=== PATIENT | male | born 1965 | race Caucasian/White ===

== ENCOUNTER 2020-06-04 14:35 | Inpatient (IN) | payer SELFPAY ==
[~2020-06-04] VITALS: Ht 180.3 cm; Wt 117.2 kg
[2020-06-04 15:11] LABS: BASOPHILS ABSOLUTE AUTO 0.09 K/mm3 (0.00-0.23); BASOPHILS PERCENT AUTO 1 % (0-2); EOSINOPHILS ABSOLUTE AUTO 0.12 K/mm3 (0.00-0.68); EOSINOPHILS PERCENT AUTO 1 % (0-6); Hematocrit 36.8 % (37.0-53.0); Hemoglobin 12.3 g/dL (13.5-17.5); IMMATURE GRAN ABSOLUTE AUTO 0.16 K/mm3 (0.00-0.10); IMMATURE GRAN PERCENT AUTO 1 % (0-1); LYMPHOCYTES ABSOLUTE AUTO 1.82 K/mm3 (0.84-5.20); LYMPHOCYTES PERCENT AUTO 10 % (21-46); MONOCYTES ABSOLUTE AUTO 1.67 K/mm3 (0.16-1.47); MONOCYTES PERCENT AUTO 9 % (4-13); Mean Corpuscular HGB 28.2 pg (26.0-34.0); Mean Corpuscular HGB Conc 33.4 g/dL (31.5-36.5); Mean Corpuscular Volume 84 fL (80-100); Mean Platelet Volume 9.3 fL (9.1-12.4); NEUTROPHILS ABSOLUTE AUTO 13.88 K/mm3 (1.96-9.15); NEUTROPHILS PERCENT AUTO 78 % (41-73); Platelet Count 519 K/mm3 (150-400); RDW Coefficient Variation 11.7 % (11.7-14.2); RDW Standard Deviation 35.8 fL (35.1-46.3); Red Blood Cell Count 4.36 M/mm3 (4.30-5.90); White Blood Cell Count 17.74 K/mm3 (4.00-11.30)
[2020-06-04 15:32] LABS: Alanine Aminotransfer (ALT/SGP 45 U/L (12-78); Albumin, Blood 3.1 g/dL (3.4-5.0); Albumin/Globulin Ratio 0.6 (0.8-1.8); Alk Phos 97 U/L (50-136); Anion Gap 7 mmol/L (6-16); Aspartate Aminotrans (AST/SGOT 22 U/L (12-37); Bilirubin, Total 0.5 mg/dL (0.1-1.0); Blood Urea Nitrogen 11 mg/dL (8-24); Bun/Creatinine Ratio 18.2 (12.0-20.0); CO2, Blood 25 mmol/L (21-32); Chloride, Blood 100 mmol/L (98-108); Creatinine, Blood 0.61 mg/dL (0.60-1.20); Globulin, Blood 4.9 g/dL (2.2-4.0); Glomerular Filtration Rate >60 (60-); Glucose, Blood 279 mg/dL (70-99); Potassium, Blood 3.8 mmol/L (3.5-5.5); Sodium, Blood 132 mmol/L (136-145)
[2020-06-04] MEDS ORDERED: Afrin15 ML (20:13)
[2020-06-04] MEDS ORDERED: ACET500 (20:14)
[2020-06-04] MEDS ORDERED: ZYRTEC10 M2 PO (20:14)
[2020-06-04] MEDS ORDERED: Hair, Skin & N1 EACH PO (20:15)
[2020-06-04] MEDS ORDERED: ACET500 PO (20:15)
[2020-06-04] MEDS ORDERED: Triple Antibi28.4 G1 PO (20:17)
[2020-06-05 04:35] LABS: BASOPHILS ABSOLUTE AUTO 0.07 K/mm3 (0.00-0.23); BASOPHILS PERCENT AUTO 1 % (0-2); EOSINOPHILS ABSOLUTE AUTO 0.19 K/mm3 (0.00-0.68); EOSINOPHILS PERCENT AUTO 1 % (0-6); Hematocrit 34.2 % (37.0-53.0); Hemoglobin 11.2 g/dL (13.5-17.5); IMMATURE GRAN ABSOLUTE AUTO 0.13 K/mm3 (0.00-0.10); IMMATURE GRAN PERCENT AUTO 1 % (0-1); LYMPHOCYTES ABSOLUTE AUTO 1.98 K/mm3 (0.84-5.20); LYMPHOCYTES PERCENT AUTO 15 % (21-46); MONOCYTES ABSOLUTE AUTO 1.46 K/mm3 (0.16-1.47); MONOCYTES PERCENT AUTO 11 % (4-13); Mean Corpuscular HGB 28.1 pg (26.0-34.0); Mean Corpuscular HGB Conc 32.7 g/dL (31.5-36.5); Mean Corpuscular Volume 86 fL (80-100); Mean Platelet Volume 9.3 fL (9.1-12.4); NEUTROPHILS ABSOLUTE AUTO 9.65 K/mm3 (1.96-9.15); NEUTROPHILS PERCENT AUTO 72 % (41-73); Platelet Count 460 K/mm3 (150-400); RDW Coefficient Variation 11.8 % (11.7-14.2); RDW Standard Deviation 37.3 fL (35.1-46.3); Red Blood Cell Count 3.98 M/mm3 (4.30-5.90); White Blood Cell Count 13.48 K/mm3 (4.00-11.30)
--- NOTE | 2020-06-05 04:46 | NUR ---
SHIFT SUMMARY: VSS. TEMP 99.4 UPON ARRIVAL TO MEDICAL FLOOR. 98.5 THIS AM. AAOX4. COMMUNICATES NEEDS. IV FLUIDS AND ABT INFUSING PER ORDERS IN EMAR. B GRT TOES CLEANSED, PATTED DRY, ABSORBENT NON-ADHERENT PADS PLACED, SECURED IN PLACE W/ KERLIX. MOD AMTS OF SERO SANGUINOUS, FOUL SMELLING EXUDATE FROM B GRT TOES. R GRT TOE LARGELY SWOLLEN AND ERYTHEMOUS. L GRT TOE MODERATELY SWOLLEN WITHOUT ERYTHEMA. 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 REPORTS PAIN 3/10 IN R MEDIAL ROBERTS- TYL ADMINISTERED. PT SLEPT POORLY, WAKING UP FREQUENTLY TO VOID. ATE A LARGE DINNER PRIOR TO MIDNIGHT AND NOW REMAINS NPO IN PREPARATION FOR POSSIBLE AMPUTATION OF R GRT TOE TODAY. WILL CONT TO MONITOR PT.
[2020-06-05 04:52] LABS: Anion Gap 6 mmol/L (6-16); Blood Urea Nitrogen 15 mg/dL (8-24); Bun/Creatinine Ratio 16.9 (12.0-20.0); CO2, Blood 27 mmol/L (21-32); Calcium, Blood 8.5 mg/dL (8.5-10.1); Chloride, Blood 101 mmol/L (98-108); Creatinine, Blood 0.89 mg/dL (0.60-1.20); Glomerular Filtration Rate >60 (60-); Glucose, Blood 321 mg/dL (70-99); Potassium, Blood 4.1 mmol/L (3.5-5.5); Sodium, Blood 134 mmol/L (136-145)
--- NOTE | 2020-06-05 18:58 | NUR ---
SHIFT SUMMARY GOPI DENIED PAIN THIS SHIFT. FEET WOUNDS CLEANED AND RE-DRESSED. WAS NPO ALL DAY FOR OR PROCEDURE, BUT WAS CANCELED AT THE LAST MINUTE DUE TO OR BEING OVERLOADED. RESCHEDULED TO TOMORROW AT 0730. PT AWARE, DR MONTES AWARE, HE WAS ABLE TO EAT DINNER. VISITED. TM
--- NOTE | 2020-06-05 21:37 | NUR ---
ASSUMED CARE. AOX3, INDEPENDENT IN THE ROOM. PUTS WEIGHT ON HIS HEELS ONLY. DRESSING CHANGED TO BILATERAL FEET. WOUND TO RIGHT GREAT TOE CLEANSED, NECROSIS NOTED TO TOE, THERE IS SOME BLUE TO THE TIP OF THE TOE. ESCAR IN THE WOUND. CLEANSED AND RE-WRAPPED. IV BAG HUNG WITH ANTIBOTIC. TYLENOL GIVE FOR PAIN. DENIED ANY OTHER ISSUES. PLAN TO TO GO TO SURGERY TOMORROW. CALL LIGHT IN REACH. WILL CONTINUE TO MONITOR.
[2020-06-06 04:50] LABS: BASOPHILS ABSOLUTE AUTO 0.07 K/mm3 (0.00-0.23); BASOPHILS PERCENT AUTO 1 % (0-2); EOSINOPHILS ABSOLUTE AUTO 0.24 K/mm3 (0.00-0.68); EOSINOPHILS PERCENT AUTO 2 % (0-6); Hematocrit 34.4 % (37.0-53.0); Hemoglobin 11.2 g/dL (13.5-17.5); IMMATURE GRAN ABSOLUTE AUTO 0.17 K/mm3 (0.00-0.10); IMMATURE GRAN PERCENT AUTO 1 % (0-1); LYMPHOCYTES ABSOLUTE AUTO 1.97 K/mm3 (0.84-5.20); LYMPHOCYTES PERCENT AUTO 15 % (21-46); MONOCYTES ABSOLUTE AUTO 1.38 K/mm3 (0.16-1.47); MONOCYTES PERCENT AUTO 10 % (4-13); Mean Corpuscular HGB Conc 32.6 g/dL (31.5-36.5); Mean Corpuscular Volume 86 fL (80-100); Mean Platelet Volume 9.7 fL (9.1-12.4); NEUTROPHILS ABSOLUTE AUTO 9.57 K/mm3 (1.96-9.15); NEUTROPHILS PERCENT AUTO 71 % (41-73); Platelet Count 480 K/mm3 (150-400); RDW Coefficient Variation 11.7 % (11.7-14.2); RDW Standard Deviation 36.8 fL (35.1-46.3)
[2020-06-06 05:07] LABS: Anion Gap 5 mmol/L (6-16); Blood Urea Nitrogen 12 mg/dL (8-24); Bun/Creatinine Ratio 13.9 (12.0-20.0); CO2, Blood 28 mmol/L (21-32); Calcium, Blood 8.7 mg/dL (8.5-10.1); Chloride, Blood 103 mmol/L (98-108); Creatinine, Blood 0.86 mg/dL (0.60-1.20); Glomerular Filtration Rate >60 (60-); Glucose, Blood 237 mg/dL (70-99); Potassium, Blood 4.2 mmol/L (3.5-5.5); Sodium, Blood 136 mmol/L (136-145)
--- NOTE | 2020-06-06 05:46 | NUR ---
SHIFT SUMMARY: AOX3, INDEPENDENT IN THE ROOM, PARTIAL WEIGHT BEARING, USES HEEL TOUCH ONLY TO MOVE AROUND. DRESSING CHANGED TO BILATERAL FEET. SURGERY SCHEDULED FOR 0745. NPO SINCE MIDNIGHT. IV FLUIDS INFUSING WELL INTO 20G. SURGICAL PACK ALREADY COMPLETED AND ON CHART. SLEPT WELL WITH CPAP THIS SHIFT. VS WNL. AFEBRILE. DID GET POSITIVE BLOOD CULTURE LAST NIGHT- GRAM + COCCI IN CLUSTERS. ALREADY ON ANTIBOTICS. WILL INFORM MD. CALL LIGHT IN REACH AND USED APPROPRIATLY.
--- NOTE | 2020-06-06 08:13 | NUR ---
06/06/20 0813 Mouna Pikcett PT ON SCHEDULED ANTIBIOTICS
--- NOTE | 2020-06-06 11:33 | NUR ---
RETURN FROM SURGERY PT RETURNED FROM DAY SURGERY. NO BLEEDING NOTED ON DRESSING AT RT FOOT. PT DENIES PAIN/DIZZINESS/DISCOMFORT. VITALS STABLE. WILL CONTINUE TO MONITOR.
--- NOTE | 2020-06-06 18:21 | NUR ---
SHIFT SUMMARY PT A&Ox4. PT DENIES PAIN SINCE RETURN FROM SURGERY. POST OP PT TOD WORKED ON AMBULATING WITH NON WEIGHT BEARING TO RLE. PT USING FWW TO ASSIST WITH AMBULATION. NEW DIABETES DIAGNOSIS. MINOR INSULIN COVERAGE INDICATED AND EDUCATION GIVEN ON INSULIN ADMIN TODAY. VITALS REVIEWED. BLE DRESSING INTACT, CLEAN, DRY. DR MOSLEY TO CHANGE FIRST DRESSING WHEN READY. NO CONCERNS FROM PT OR AT THIS TIME. CALL LIGHT IN REACH.
--- NOTE | 2020-06-06 22:47 | NUR ---
1954 THIS NURSE CHANGED LEFT FOOT DRESSING TO LEFT GREAT TOE; BULKY DRESSING REAPLIED TO SITE AND PT TOLERATED PROCEDURE WELL.
--- NOTE | 2020-06-07 03:41 | NUR ---
SHIFT SUMMARY: 55 Y/O MALE RESTED COMFORTABLY ALL SHIFT; PTS BILATERAL FOOT DRESSINGS ARE DRY AND INTACT; PT DENIES PAIN OR NAUSEA; PT ABLE TO PIVOT/TRANSFER VIA WALKER TO BATHROOM AND BACK NWB TO RIGHT FOOT; PT INSTRUCTED ON DM TO INCLUDE PATIENT GAVE OWN INSULIN IN ABD WITH THIS NURSE OBSERVING (THIS NURSE MATTY UP UNITS VIA PEN); S/S HYPO/HYPERGLYCEMIA; MAINTAINING DAILY LOG; NEED TO AVOID DRINKING BEER/REGULAR SODA POP; WEARING SHOES 100% TIME TO INCLUDE SCUBA DIVING WHICH PATIENT HAS BIG HOBBY; BED LOW POSITION WITH CALL LIGHT AT SIDE.
[2020-06-07 04:31] LABS: BASOPHILS ABSOLUTE AUTO 0.07 K/mm3 (0.00-0.23); BASOPHILS PERCENT AUTO 1 % (0-2); EOSINOPHILS ABSOLUTE AUTO 0.22 K/mm3 (0.00-0.68); EOSINOPHILS PERCENT AUTO 2 % (0-6); Hematocrit 35.3 % (37.0-53.0); Hemoglobin 11.6 g/dL (13.5-17.5); IMMATURE GRAN ABSOLUTE AUTO 0.17 K/mm3 (0.00-0.10); IMMATURE GRAN PERCENT AUTO 2 % (0-1); LYMPHOCYTES ABSOLUTE AUTO 2.41 K/mm3 (0.84-5.20); LYMPHOCYTES PERCENT AUTO 22 % (21-46); MONOCYTES ABSOLUTE AUTO 1.15 K/mm3 (0.16-1.47); MONOCYTES PERCENT AUTO 10 % (4-13); Mean Corpuscular HGB 27.9 pg (26.0-34.0); Mean Corpuscular HGB Conc 32.9 g/dL (31.5-36.5); Mean Corpuscular Volume 85 fL (80-100); Mean Platelet Volume 9.4 fL (9.1-12.4); NEUTROPHILS ABSOLUTE AUTO 7.16 K/mm3 (1.96-9.15); NEUTROPHILS PERCENT AUTO 64 % (41-73); Platelet Count 526 K/mm3 (150-400); RDW Coefficient Variation 11.7 % (11.7-14.2); RDW Standard Deviation 35.8 fL (35.1-46.3); Red Blood Cell Count 4.16 M/mm3 (4.30-5.90); White Blood Cell Count 11.18 K/mm3 (4.00-11.30)
--- NOTE | 2020-06-07 18:35 | NUR ---
SHIFT SUMMARY CHANGED HIS ORAL DIABETIC MEDS A BIT. HIS CBG HAS IMPROVED SIGNIFICANTLY THIS EVENING. HE DOES VERY WELL WITH SELF ADMINISTRATION. HE HAS A GOOD UNDERSTANDING OF DIABETIC MEDICATIONS AND SOME GOOD UNDERSTANDING OF WHAT IS NEEDED WITH A DIET CHANGE. R FOOT DRSG CHANGED BY DR MOSLEY WHO WILL CONTINUE TO CHANGE THAT. RN CHANGED LEFT FOOT DRESSING. HEALING WELL
[2020-06-08 05:24] LABS: Alanine Aminotransfer (ALT/SGP 61 U/L (12-78); Albumin/Globulin Ratio 0.6 (0.8-1.8); Alk Phos 104 U/L (50-136); Anion Gap 3 mmol/L (6-16); Aspartate Aminotrans (AST/SGOT 30 U/L (12-37); Bilirubin, Total 0.5 mg/dL (0.1-1.0); Blood Urea Nitrogen 10 mg/dL (8-24); Bun/Creatinine Ratio 11.5 (12.0-20.0); CHOL/HDL RATIO 4.7; CO2, Blood 30 mmol/L (21-32); Calcium, Blood 9.4 mg/dL (8.5-10.1); Chloride, Blood 105 mmol/L (98-108); Cholesterol 151 mg/dL (50-200); Creatinine, Blood 0.87 mg/dL (0.60-1.20); Globulin, Blood 5.3 g/dL (2.2-4.0); Glomerular Filtration Rate >60 (60-); Glucose, Blood 139 mg/dL (70-99); HDL Cholesterol 32 mg/dL (>39); LDL/HDL RATIO 2.9; Low Density Lipoprotein Chol 92 mg/dL (0-110); Potassium, Blood 4.6 mmol/L (3.5-5.5); Sodium, Blood 138 mmol/L (136-145); Total Protein, Blood 8.3 g/dL (6.4-8.2); Triglycerides 135 mg/dL (30-160); Very Low Density Lipoprot Chol 27 mg/dL (6-32)
--- NOTE | 2020-06-08 07:30 | NUR ---
SHIFT SUMMARY AOX4. VSS. DENIES DYSPNEA, N/V. REPORTED 2/10 PAIN FOR [place], MEDICATED c TYLENOL & PT REPORTED RELIEF. CBG @HS WAS 143, GAVE 15U LANTUS PER ORDERS CBG AROUND 0200 WAS 121 & THIS AM CBG WAS 139. POD 2 FOR RT GREAT TOE AMPUTATION, DENIES ANY PAIN c RT FOOT, BANDAGE IS C/D/I-DR MOSLEY CHANGE 06/07/20 PER REPORT. DRESSING ON L FOOT IS C/D/I. CALL LIGHT IN REACH.
[2020-06-08] MEDS ORDERED: ATOR10 PO (10:14)
[2020-06-08] MEDS ORDERED: CEFP200 PO (10:14)
[2020-06-08] MEDS ORDERED: FAMO20 PO (10:15)
[2020-06-08] MEDS ORDERED: CLIN300 PO (10:15)
[2020-06-08] MEDS ORDERED: GLIP2.5ER PO (10:17)
[2020-06-08] MEDS ORDERED: BASAGLAR K100 UNIT/1 SC (10:18)
[2020-06-08] MEDS ORDERED: ONDA4ODT MM (10:20)
[2020-06-08] MEDS ORDERED: METF500 PO (10:20)
[2020-06-08] MEDS ORDERED: ROXICODONE5 MG PO (10:20)
[2020-06-08] MEDS ORDERED: VISBIOME PROBIOTIC PO (10:23)
--- NOTE | 2020-06-08 12:08 | NUR ---
DR OSEITRATE IN TO SEE PT, PROVIDE D/C HOME ORDERS. PT WILL F/U w DR MOSLEY FOR WOUND CARE/DRSG CHANGES. D/C INSTRUCT, DIABETIC ED REVIEWED w PT. SCRIPTS TO [facility]/REQUEST. IV D/C INTACT. PT'S IN FOR TRANSPORT HOME. PT IS PLEASANT/APPRECIATIVE. W/C ESCORT FROM HOSP PROVIDED.
== END 2020-06-08 13:01 | disposition home or self-care (01) | DRG 853 ==
LOC: ER 14:35 → MEDS 19:29 → ENPENDDIS 06-08 11:07 → MEDS 06-08 13:01
PROVIDERS: Emergency Medicine; Internal Medicine; Nurse Practitioner Acute Care; Podiatrist Foot & Ankle Surgery; ADMIT Internal Medicine
PROC: 0Y6P0Z0 Detachment at Right 1st Toe, Complete, Open Approach (ICD-10-PCS; principal; 2020-06-06 08:00)
DX: A40.1 Sepsis due to streptococcus, group B (principal); A48.0 Gas gangrene; E11.52 Type 2 diabetes mellitus with diabetic peripheral angiopathy with gangrene; G47.33 Obstructive sleep apnea (adult) (pediatric); E11.621 Type 2 diabetes mellitus with foot ulcer; E66.9 Obesity, unspecified; E11.40 Type 2 diabetes mellitus with diabetic neuropathy, unspecified
CPT/HCPCS: 36415; 73630; 80048; 80053; 80061; 82947; 83036; 83605; 85025; 85651; 86140; 87040; 87070; 87075; 87076; 87077; 87147; 87185; 87186; 87205; 88305; 88311; 94660; 94762; 96365; 96366; 96367; 97116; 97161; 97530; 99284-25; A9270; A9270-GY; J0692; J1644; J2250; J2543; J2704; J3010; J3370; J7030; J7050; U0002

== ENCOUNTER 2022-12-09 08:35 | Day surgery (SDC) | payer OTHER ==
[~2022-12-09] VITALS: Ht 180.3 cm; Wt 119.1 kg
[~2022-12-09 08:35] MED LIST: ACET500; ACET500 PO; ATOR10 PO; Afrin15 ML; BASAGLAR K100 UNIT/1 SC; CEFP200 PO; CLIN300 PO; FAMO20 PO; GLIP2.5ER PO; Hair, Skin & N1 EACH PO; METF500 PO; ONDA4ODT MM; ROXICODONE5 MG PO; SULTRIDS PO; Triple Antibi28.4 G1 PO; VISBIOME PROBIOTIC PO; ZYRTEC10 M2 PO
[2022-12-09] MEDS ORDERED: PIOG15 PO (09:58)
== END 2022-12-09 11:23 | disposition home or self-care (01) ==
LOC: ORSCSDS 08:35
PROVIDERS: Podiatrist Foot & Ankle Surgery
PROC: 0Y6R0Z1 Detachment at Right 2nd Toe, High, Open Approach (ICD-10-PCS; principal; 2022-12-09 10:15)
DX: E11.621 Type 2 diabetes mellitus with foot ulcer (principal); M86.171 Other acute osteomyelitis, right ankle and foot; L03.115 Cellulitis of right lower limb; I73.9 Peripheral vascular disease, unspecified; E11.42 Type 2 diabetes mellitus with diabetic polyneuropathy; G47.33 Obstructive sleep apnea (adult) (pediatric); Z79.4 Long term (current) use of insulin; Z79.84 Long term (current) use of oral hypoglycemic drugs; E66.9 Obesity, unspecified; Z68.37 Body mass index [BMI] 37.0-37.9, adult
CPT/HCPCS: 82947; 88305; 88311; J0690; J2250; J2704; J2795; J3010

== ENCOUNTER 2024-06-07 01:44 | Day surgery (SDC) | payer OTHER ==
[~2024-06-07 01:44] MED LIST changes: +PIOG15 PO
== END 2024-06-07 23:35 | disposition home or self-care (01) ==
LOC: WOUND 01:44
DX: E11.621 Type 2 diabetes mellitus with foot ulcer (principal); L97.422 Non-pressure chronic ulcer of left heel and midfoot with fat layer exposed; E11.65 Type 2 diabetes mellitus with hyperglycemia; I10 Essential (primary) hypertension; E11.40 Type 2 diabetes mellitus with diabetic neuropathy, unspecified; Z86.31 Personal history of diabetic foot ulcer
CPT/HCPCS: 73630; G0463

== ENCOUNTER 2024-06-21 04:53 | Day surgery (SDC) | payer OTHER | END 2024-06-22 01:50 | disposition home or self-care (01) | LOC: WOUND 04:53 | DX: E11.621 Type 2 diabetes mellitus with foot ulcer (principal); L97.422 Non-pressure chronic ulcer of left heel and midfoot with fat layer exposed; E11.65 Type 2 diabetes mellitus with hyperglycemia; I10 Essential (primary) hypertension; Z86.31 Personal history of diabetic foot ulcer | CPT/HCPCS: G0463 ==

== ENCOUNTER 2024-07-05 01:26 | Day surgery (SDC) | payer OTHER | END 2024-07-06 03:11 | disposition home or self-care (01) | LOC: WOUND 01:26 | DX: E11.621 Type 2 diabetes mellitus with foot ulcer (principal); L97.522 Non-pressure chronic ulcer of other part of left foot with fat layer exposed; E11.40 Type 2 diabetes mellitus with diabetic neuropathy, unspecified; I10 Essential (primary) hypertension | CPT/HCPCS: G0463 ==

== ENCOUNTER 2024-07-26 03:28 | Day surgery (SDC) | payer OTHER | END 2024-07-26 23:54 | disposition home or self-care (01) | LOC: WOUND 03:28 | DX: E11.621 Type 2 diabetes mellitus with foot ulcer (principal); L97.422 Non-pressure chronic ulcer of left heel and midfoot with fat layer exposed; E11.622 Type 2 diabetes mellitus with other skin ulcer; L98.492 Non-pressure chronic ulcer of skin of other sites with fat layer exposed; E11.65 Type 2 diabetes mellitus with hyperglycemia; E11.40 Type 2 diabetes mellitus with diabetic neuropathy, unspecified; I10 Essential (primary) hypertension | CPT/HCPCS: G0463 ==

== ENCOUNTER 2024-09-06 04:47 | Day surgery (SDC) | payer OTHER | END 2024-09-06 23:00 | disposition home or self-care (01) | LOC: WOUND 04:47 | DX: E11.621 Type 2 diabetes mellitus with foot ulcer (principal); L97.512 Non-pressure chronic ulcer of other part of right foot with fat layer exposed; L97.421 Non-pressure chronic ulcer of left heel and midfoot limited to breakdown of skin; I10 Essential (primary) hypertension; E11.40 Type 2 diabetes mellitus with diabetic neuropathy, unspecified | CPT/HCPCS: G0463 ==

== ENCOUNTER 2024-10-11 06:20 | Day surgery (SDC) | payer OTHER | END 2024-10-11 23:00 | disposition home or self-care (01) | LOC: WOUND 06:20 | DX: E11.621 Type 2 diabetes mellitus with foot ulcer (principal); L97.512 Non-pressure chronic ulcer of other part of right foot with fat layer exposed; E11.40 Type 2 diabetes mellitus with diabetic neuropathy, unspecified; I10 Essential (primary) hypertension; E11.65 Type 2 diabetes mellitus with hyperglycemia; Z86.31 Personal history of diabetic foot ulcer | CPT/HCPCS: G0463 ==

== ENCOUNTER 2024-11-25 02:23 | Day surgery (SDC) | payer OTHER | END 2024-11-25 23:00 | disposition home or self-care (01) | LOC: WOUND 02:23 | DX: E11.621 Type 2 diabetes mellitus with foot ulcer (principal); L97.512 Non-pressure chronic ulcer of other part of right foot with fat layer exposed; I10 Essential (primary) hypertension | CPT/HCPCS: G0463 ==

== ENCOUNTER 2024-12-11 02:36 | Day surgery (SDC) | payer OTHER ==
[~2024-12-11 02:36] MED LIST changes: +EPIPEN0.3 MG/0.1 IM
== END 2024-12-11 23:00 | disposition home or self-care (01) ==
LOC: WOUND 02:36
DX: E11.621 Type 2 diabetes mellitus with foot ulcer (principal); L97.512 Non-pressure chronic ulcer of other part of right foot with fat layer exposed; E11.65 Type 2 diabetes mellitus with hyperglycemia; I10 Essential (primary) hypertension
CPT/HCPCS: G0463

== ENCOUNTER → 2025-01-07 | Day surgery (SDC) | payer OTHER | LOC: WOUND 02:27 | DX: E11.621 Type 2 diabetes mellitus with foot ulcer (principal); L97.512 Non-pressure chronic ulcer of other part of right foot with fat layer exposed; I10 Essential (primary) hypertension; E11.40 Type 2 diabetes mellitus with diabetic neuropathy, unspecified | CPT/HCPCS: G0463 ==

== ENCOUNTER → 2025-01-21 | Day surgery (SDC) | payer OTHER | LOC: WOUND 04:36 | DX: E11.621 Type 2 diabetes mellitus with foot ulcer (principal); L97.512 Non-pressure chronic ulcer of other part of right foot with fat layer exposed; E11.65 Type 2 diabetes mellitus with hyperglycemia; I10 Essential (primary) hypertension | CPT/HCPCS: G0463 ==

== ENCOUNTER 2025-02-04 02:20 | Day surgery (SDC) | payer OTHER | END 2025-02-04 23:43 | disposition home or self-care (01) | LOC: WOUND 02:20 | DX: E11.621 Type 2 diabetes mellitus with foot ulcer (principal); L97.512 Non-pressure chronic ulcer of other part of right foot with fat layer exposed; E11.65 Type 2 diabetes mellitus with hyperglycemia; I10 Essential (primary) hypertension | CPT/HCPCS: G0463 ==

== ENCOUNTER 2025-05-22 15:58 | Emergency (ER) | payer OTHER ==
[~2025-05-22] VITALS: Ht 180.3 cm; Wt 122.5 kg
[2025-05-22 16:06] VITALS: BP 133/87
== END 2025-05-22 16:55 | disposition home or self-care (01) ==
LOC: ER 15:58
DX: Z23 Encounter for immunization (principal); E11.9 Type 2 diabetes mellitus without complications; S91.331D Puncture wound without foreign body, right foot, subsequent encounter; W22.8XXD Striking against or struck by other objects, subsequent encounter; Z79.899 Other long term (current) drug therapy; Z79.84 Long term (current) use of oral hypoglycemic drugs
CPT/HCPCS: 90471; 90714; 99281-25